=== PATIENT | male | born 1960 | race Caucasian/White ===

== ENCOUNTER 2020-04-12 15:04 | Emergency (ER) | payer OTHER, SELFPAY ==
[2020-04-12 15:11] VITALS: BP 136/93; PULSE 74; RESP 18; TEMP 37.1; O2SAT 99
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
[2020-04-12 15:54] LABS: Add Manual Diff / Slide Review NO; Basophils Absolute Auto 0 /uL (0-100); Basophils Percent Auto 0.7 % (0-2); Eosinophils Absolute Auto 0 /uL (0-450); Eosinophils Percent Auto 0.7 % (2-4); Hematocrit 40.9 % (41-53); Hemoglobin 13.7 g/dL (13.5-17.5); Lymphocytes Absolute Auto 1300 /uL (1100-4500); Lymphocytes Percent Auto 20.4 % (25-40); Mean Corpuscular HGB Conc 33.5 % (30-36); Mean Corpuscular Hemoglobin 28.8 PG (26-34); Mean Corpuscular Volume 86.1 fL (80-100); Monocytes Absolute Auto 300 /uL (0-900); Monocytes Percent Auto 4.6 % (3-14); Neutrophils Absolute Auto 4800 /uL (1500-7000); Neutrophils Percent Auto 73.6 % (50-75); Platelet Count 204 X10^3/uL (150-400); Red Blood Cell Count 4.75 X10^6/uL (4.5-5.9); Red Cell Distribution Width 13.2 % (11.6-14.8); White Blood Cell Count 6.5 X10^3/uL (4.5-11.0)
[2020-04-12 16:03] VITALS: PULSE 83; O2SAT 98
[2020-04-12 16:05] LABS: BUN Creatinine Ratio 23.5 (6-22); Blood Urea Nitrogen 16 mg/dL (9-20); Calcium 9.6 mg/dL (8.4-10.2); Carbon Dioxide 24 mmol/L (22-32); Chloride 98 mmol/L (98-107); Estimated Glomerular Filt Rate > 60.0 mL/min (>60); Potassium 4.3 mmol/L (3.4-5.1); Sodium 131 mmol/L (137-145)
[2020-04-12] MEDS: KETOROLAC 60 MG/2 ML VIAL 15 MG IV (16:05)
[2020-04-12] MEDS: SODIUM CHLORIDE 0.9% 1,000 ML 1000 ML IV (16:07)
[2020-04-12 16:18] LABS: HEMOLYSIS 27 (0-50)
[2020-04-12 16:21] LABS: Glucose 623 mg/dL (70-100)
[2020-04-12 16:30] VITALS: PULSE 85; O2SAT 99
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
[2020-04-12] MEDS: TET,DIPH,PERTUSS(ACELL),VAC/PF 0.5 ML SYRINGE IM (16:45)
[2020-04-12 17:00] VITALS: BP 126/65; PULSE 75; O2SAT 99
[2020-04-12] MEDS: BACITRACIN OINT 0.9 GM PCKT 1 APPLIC TOP (17:18)
== END 2020-04-12 17:27 | disposition home or self-care (01) ==
PROVIDERS: Emergency Provider Emergency Medicine
DX: M25.512 Pain in left shoulder (principal); E11.65 Type 2 diabetes mellitus with hyperglycemia; M25.571 Pain in right ankle and joints of right foot; V89.2XXA Person injured in unspecified motor-vehicle accident, traffic, initial encounter; Z23 Encounter for immunization
CPT/HCPCS: 70450; 71045; 72125; 73030; 73610; 80048; 82962; 85025; 90471; 96361; 96374; 99284; 90715; J1885

== ENCOUNTER → 2020-12-13 08:45 | Outpatient (CLI) | payer OTHER, SELFPAY ==
--- NOTE | 2020-12-13 | DI.MRI.S_ITS ---
PROCEDURE: MR CERVICAL SPINE WO CON INDICATIONS: Pain in unspecified shoulder TECHNIQUE: Noncontrast sagittal T1 spin echo and T2 fast spin echo, sagittal STIR, foraminal oblique sagittal T2 fast spin echo, and axial gradient echo or T2 fast spin echo through the cervical spine. COMPARISON: [facility], , C-SPINE WITHOUT CONTRAST, 07/19/2015, 9:51. FINDINGS: Image quality: Excellent. Alignment and Curvature: There is mild straightening of normal cervical curvature, unchanged. Bone Marrow: Marrow demonstrates normal overall signal. Minimal reactive endplate changes are present at C5-6, C6-7. Spinal Cord: Visualized spinal cord has normal size and signal. No cerebellar tonsillar herniation. Paraspinous Soft Tissues: No paravertebral masses. Prevertebral soft tissues are normal in thickness. Discs: Jqgn-tx-dsbevqpj desiccation is present throughout the cervical spine. C2-C3: No disc bulge, spinal stenosis or foraminal narrowing. No interval change. C3-C4: Mild disc bulge with minimal effacement of the spinal canal. Mild left and moderate right foraminal narrowing with uncovertebral hypertrophy. No interval progression. C4-C5: Mild motion is present at this level. There is mild disc bulge with mild spinal stenosis with effacement anterior thecal sac and minimal mass effect on the cord. Mild to moderate right and moderate to severe left foraminal narrowing, slightly progressive with facet and ligamentum flavum hypertrophy. C5-C6: Mild disc bulge with minimal canal narrowing. Qaro-dq-imqlqtau left and mild right foraminal narrowing with uncovertebral hypertrophy. No interval change. C6-C7: Mild asymmetric disc bulge with minimal canal narrowing. Mild right and mkzy-vc-qtnbnzrq left foraminal narrowing with uncovertebral hypertrophy. No interval change. C7-T1: No disc bulge, spinal stenosis or foraminal narrowing. IMPRESSION: 1. Multilevel degenerative changes with mild areas of interval progression as noted above. 2. Multilevel foraminal narrowing, overall szsd-gd-lgythjpr secondary to uncovertebral arthropathy. 3. Overall minimal to mild canal narrowing secondary to disc bulge. Dictated by: Juliette Smith M.D. on 12/13/2020 at 9:49 Approved by: Juliette Smith M.D. on 12/13/2020 at 10:06
== END ==
PROVIDERS: PCP Internal Medicine; Referring Provider Internal Medicine; Visit Provider Internal Medicine
DX: M25.519 Pain in unspecified shoulder (principal); M50.31 Other cervical disc degeneration, high cervical region; M47.812 Spondylosis without myelopathy or radiculopathy, cervical region; M50.21 Other cervical disc displacement, high cervical region
CPT/HCPCS: 72141

== ENCOUNTER → 2021-01-30 12:17 | Outpatient (CLI) | payer OTHER, SELFPAY ==
[2021-01-30] MEDS: COVID-19 VACC #1, MRNA(MOD) 100 MCG/0.5 ML VIAL IM (12:24)
== END ==
PROVIDERS: PCP Internal Medicine; Visit Provider Internal Medicine
DX: Z23 Encounter for immunization (principal)
CPT/HCPCS: 0011A; 91301

== ENCOUNTER → 2021-02-10 09:57 | Outpatient (CLI) | payer OTHER, SELFPAY ==
[2021-02-10 11:01] LABS: COVID19 -Nasal RAPID Negative (Negative)
== END ==
PROVIDERS: PCP Internal Medicine; Visit Provider Student in an Organized Health Care Education/Training Program
DX: Z01.812 Encounter for preprocedural laboratory examination (principal); Z20.822 Contact with and (suspected) exposure to COVID-19
CPT/HCPCS: 87635

== ENCOUNTER 2021-02-11 06:49 | Day surgery (SDC) | payer OTHER, SELFPAY ==
[2021-02-11 07:35] VITALS: BP 112/70; PULSE 70; RESP 16; TEMP 36.3; O2SAT 100; BMI 25.0
[2021-02-11] MEDS: PROPARACAINE 0.5% OPHTH SOL 2 DROPS EYE-OP (07:43)
[2021-02-11] MEDS: CATARACT EYE COMPOUND (10 DROPS/SYRINGE) 3 DROPS EYE-OP (07:43)
[2021-02-11] MEDS: INSULIN REGULAR 100 UNIT/ML 3 ML VIAL 10 UNIT SUBCUT (07:58)
--- NOTE | 2021-02-11 08:30 | PM.PREOP ---
Pre-operative Note Interval Note History & Physical reviewed/Exam performed by Physician: Yes Changes to H&P: No
--- NOTE | 2021-02-11 08:30 | P.OP_ITS ---
Operative Date/Time/Diagnoses Pre-op diagnosis: Nuclear Cataract Left eye Post-op diagnosis: same Procedure & Clinicians Same procedure as scheduled: Yes Surgeon: Bigg Gaines Anesthesia Type: MAC +/- and Sedation Operative Notes Procedure in detail: Patient brought to the operating suite. Tetracaine drops placed in the left eye. Marking instrument was used to maegan the vertica and horizontal meridians. Patient was prepped and draped in sterile manner. Wire lid speculum was placed in the eye. Marking instrument was used to maegan the 170 degree meridian. Betadine drops were placed on the eye. This was irrigated. Lidocaine jelly was placed on the eye. A paracentesis port was created with a side-port blade. 0.1 mL 1% preservative free lidocaine was injected into the anterior chamber. The anterior chamber was deepened with viscoelastic. 2.6 mm keratome was used to create a temporal clear corneal incision. Cystotome and Utrata forceps were used to create continuous tear capsulorrhexis. Balanced salt solution was used to hydro dissect the nucleus. The phacoemulsification handpiece was inserted and the nucleus was removed using the stop and chop tech nique. The irrigation aspiration handpiece was inserted and the remaining cortex was removed. Anterior chamber was deepened with viscoelastic. An Ponce [id number] intraocular lens with a power of 18.0 was injected into the capsular bag. Irrigation aspiration handpiece was inserted and the remaining viscoelastic was removed. The lens was rotated to the 170 degree meridian. Incision was hydrated with balanced salt solution and found to be leak free with pressure with Weck-Cheryl sponges. 0.1 mL Vigamox injected anterior chamber. 0.3 mL Kenalog 10 mg was injected subconjunctivally. Lid speculum was removed. The patient left the operating room in excellent condition. Complications: none Post-operative Condition: stable Disposition: same day surgery
--- NOTE | 2021-02-11 08:32 | SUR.PREOP ---
Repeat blood sugar after administration of insulin is 363. Notified Anesthesiology. Patient remains asymptomatic.
[2021-02-11] MEDS: LIDOCAINE 2% (GLYDO) 6 ML GEL TOP (08:48)
[2021-02-11] MEDS: MOXIFLOXACIN INJ 4 MG/0.8 ML VIAL 0.5 MG EYE-OP (08:48)
[2021-02-11] MEDS: CHONDROIDTIN/SOD HYALURONATE 1.05 ML SYRINGE INTRAOCULA (08:48)
[2021-02-11] MEDS: BALANCED SALT IRRIG SOLN NO.2 500 ML, EPINEPHrine 1 MG IRR (08:49)
[2021-02-11] MEDS: TETRACAINE 0.5% OPHTH DROPS 4 ML 2 DROPS EYE-OP (08:49)
[2021-02-11] MEDS: PHENYLEPHRINE/LIDOCAINE VIAL (OR) 0.2 ML EYE-OP (08:49)
[2021-02-11] MEDS: TRIAMCINOLONE 50 MG/5 ML VIAL INJ (08:49)
[2021-02-11 09:07] VITALS: BP 97/66; PULSE 72; RESP 14; TEMP 36.2; O2SAT 100
== END 2021-02-11 09:15 | disposition home or self-care (01) ==
PROVIDERS: PCP Internal Medicine; Referring Provider Ophthalmology; Visit Provider Ophthalmology
PROC: (CPT 66984; principal; 2021-02-11 08:45)
DX: H25.12 Age-related nuclear cataract, left eye (principal); E11.9 Type 2 diabetes mellitus without complications; Z79.4 Long term (current) use of insulin
CPT/HCPCS: 66984; 82962; J0171; J2250; J3301; V2787

== ENCOUNTER → 2021-03-03 11:09 | Outpatient (CLI) | payer OTHER, SELFPAY ==
[2021-03-03 15:39] LABS: COVID19 -Nasal RAPID Negative (Negative)
== END ==
PROVIDERS: PCP Internal Medicine; Visit Provider Physician Assistant
DX: Z01.812 Encounter for preprocedural laboratory examination (principal); Z20.822 Contact with and (suspected) exposure to COVID-19
CPT/HCPCS: 87635

== ENCOUNTER 2021-03-04 08:09 | Day surgery (SDC) | payer OTHER, SELFPAY ==
[2021-03-04 09:20] VITALS: BP 113/71; PULSE 70; RESP 13; TEMP 35.9; O2SAT 100; BMI 25.5
[2021-03-04] MEDS: PROPARACAINE 0.5% OPHTH SOL 2 DROPS EYE-OP (09:31)
[2021-03-04] MEDS: CATARACT EYE COMPOUND (10 DROPS/SYRINGE) 3 DROPS EYE-OP (09:31)
--- NOTE | 2021-03-04 10:07 | PM.PREOP ---
Pre-operative Note Interval Note History & Physical reviewed/Exam performed by Physician: Yes Changes to H&P: No
--- NOTE | 2021-03-04 10:08 | P.OP_ITS ---
Operative Date/Time/Diagnoses Pre-op diagnosis: Nuclear cataract right eye Procedure & Clinicians Procedure: Cataract Surgery Same procedure as scheduled: Yes Surgeon: Bigg Gaines Anesthesia Type: MAC +/- and Sedation Operative Notes Procedure in detail: Patient brought to the operating suite. Tetracaine drops placed in the right eye. Marking instrument was used to maegan vertical and horizontal meridians. Patient was prepped and draped in sterile manner. Wire lid speculum was placed in the eye. Marking instrument was used to maegan 5 degree meridian. Betadine drops were placed on the eye. This was irrigated. Lidocaine jelly was placed on the eye. A paracentesis port was created with a side-port blade. 0.1 mL 1% preservative free lidocaine was injected into the anterior chamber. The anterior chamber was deepened with viscoelastic. 2.6 mm keratome was used to create a temporal clear corneal incision. Cystotome and Utrata forceps were used to create continuous tear capsulorrhexis. Balanced salt solution was used to hydro dissect the nucleus. The phacoemulsification handpiece was inserted and the nucleus was removed using the stop and chop technique. The irrigation aspiration handpiece was inserted and the remaining cortex was removed. Anterior chamber was deepened with viscoelastic. An Ponce [id number] intraocular lens with a power of 17.5 was injected into the capsular bag. Irrigation aspiration handpiece was inserted and the remaining viscoelastic was removed. The lens was rotated to the 5 degree meridian. Incision was hydrated with balanced salt solution and found to be leak free with pressure with Weck- Cheryl sponges. 0.1 mL Vigamox injected anterior chamber. 0.3 mL Kenalog 10 mg was injected subconjunctivally. Lid speculum was removed. The patient left the operating room in excellent condition. Complications: none Post-operative Condition: stable Disposition: same day surgery
[2021-03-04] MEDS: CHONDROIDTIN/SOD HYALURONATE 1.05 ML SYRINGE INTRAOCULA (10:18)
[2021-03-04] MEDS: LIDOCAINE 2% (GLYDO) 6 ML GEL TOP (10:18)
[2021-03-04] MEDS: TETRACAINE 0.5% OPHTH DROPS 4 ML 2 DROPS EYE-OP (10:19)
[2021-03-04] MEDS: BALANCED SALT IRRIG SOLN NO.2 500 ML, EPINEPHrine 1 MG IRR (10:19)
[2021-03-04] MEDS: PHENYLEPHRINE/LIDOCAINE VIAL (OR) 0.2 ML EYE-OP (10:19)
[2021-03-04] MEDS: MOXIFLOXACIN INJ 4 MG/0.8 ML VIAL 0.5 MG EYE-OP (10:19)
[2021-03-04] MEDS: TRIAMCINOLONE 50 MG/5 ML VIAL INJ (10:20)
--- NOTE | 2021-03-04 10:22 | SUR.OPER ---
Supine on eye stretcher, head on extension cradle secured with tape. Arms tucked at sides with blanket. Pillow under knees.
[2021-03-04 10:46] VITALS: BP 99/67; PULSE 70; RESP 14; TEMP 36.5; O2SAT 100
== END 2021-03-04 11:00 | disposition home or self-care (01) ==
PROVIDERS: PCP Internal Medicine; Referring Provider Ophthalmology; Visit Provider Ophthalmology
PROC: (CPT 66984; principal; 2021-03-04 10:15)
DX: H25.11 Age-related nuclear cataract, right eye (principal); E11.9 Type 2 diabetes mellitus without complications; Z79.4 Long term (current) use of insulin
CPT/HCPCS: 66984; J0171; J2250; J3301; V2787

== ENCOUNTER → 2021-03-07 07:28 | Outpatient (CLI) | payer OTHER, SELFPAY ==
[2021-03-07] MEDS: COVID-19 VACC #2, MRNA(MOD) 100 MCG/0.5 ML VIAL IM (07:37)
== END ==
PROVIDERS: PCP Internal Medicine; Visit Provider Internal Medicine
DX: Z23 Encounter for immunization (principal)
CPT/HCPCS: 0012A; 91301

== ENCOUNTER 2021-07-05 15:29 | Emergency (ER) | payer OTHER, SELFPAY ==
[2021-07-05 15:40] VITALS: BP 119/72; PULSE 99; RESP 18; TEMP 37.1; O2SAT 98
--- NOTE | 2021-07-05 15:59 | ED.WOUNDLAC ---
HPI - Wound/Laceration <Jonnie Zheng PA-C - Last Filed: 07/05/21 17:23> General Chief Complaint: Wound/Laceration Stated Complaint: sliced top of left thumb Time Seen by Provider: 07/05/21 15:37 Source: patient Mode of arrival: Ambulatory Limitations: no limitations History of Present Illness HPI narrative: Joshua presents today with chief complaint of laceration to his left thumb that occurred just prior to arrival. He reports that he was working with a box knife and it slipped off of the object that he was cutting and went into the top of his thumb. He reports pain with range of motion and significant bleeding. He states that is really deep and he is concerned that he may have hit something inside. His tetanus is up-to-date. Related Data Home Medications Medication Instructions Recorded Confirmed aspirin 81 mg tablet,delayed 81 mg PO DAILY 02/11/21 03/04/21 release cyclobenzaprine 10 mg tablet 10 mg PO Q8HP PRN 02/11/21 03/04/21 diclofenac sodium 1 % topical gel 1 g TOPICAL PRN PRN 02/11/21 03/04/21 gabapentin 300 mg capsule 300 mg PO DAILY 02/11/21 03/04/21 hydrocodone 5 mg-acetaminophen 325 0 tab PO Q6HP PRN 02/11/21 03/04/21 mg tablet insulin glargine 100 unit/mL (3 20 unit SUBCUT BID 02/11/21 03/04/21 mL) subcutaneous pen (Lantus Solostar U-100 Insulin) metformin 1,000 mg tablet 1,000 mg PO BID 02/11/21 03/04/21 pioglitazone 15 mg tablet 15 mg PO DAILY 02/11/21 03/04/21 Allergies Allergy/AdvReac Type Severity Reaction Status Date / Time simvastatin [From ZOCOR] Allergy Unknown Joint Pain Verified 03/04/21 09:26 dulaglutide [From Trulicity] AdvReac Intermediate Vomiting Verified 03/04/21 09:26 Review of Systems <Jonnie Zheng PA-C - Last Filed: 07/05/21 17:23> Review of Systems Narrative: As per HPI Patient History <Jonnie Zheng PA-C - Last Filed: 07/05/21 17:23> Medical History (Updated 07/05/21 @ 16:41 by Jonnie Zheng PA-C) Diabetes Social History marital status: household members: spouse helmet use: Yes Smoking Status: Former smoker alcohol intake: never Smoking Status: Former smoker Substance Use Type: does not use Exam <Jonnie Zheng PA-C - Last Filed: 07/05/21 17:23> Narrative Exam Narrative: Exam Narrative: Const General: cooperative, healthy appearing, comfortable, no acute distress, well developed and well groomed Nutritional Appearance: average body habitus Orientation: alert and oriented x3 HENMT Head: normal to inspection and atraumatic Ears: hearing grossly normal bilaterally Nose: external nose normal and nares normal Face and sinus: normal facial exam Neck Neck: normal visual inspection and supple Resp Effort & Inspection: normal respiratory effort, able to speak in complete sentences, no audible wheezes, not labored, no nasal flaring and no respiratory distress Extremities Upper extremities exposed. 1.5 cm linear laceration to dorsal left thumb at interphalangeal joint. Small amount of bleeding. No underlying bony tenderness. Distal sensation is intact. Capillary refill is normal. Unable to extend thumb at interphalangeal joint. Flexion is intact. Extensor tendon is visualized and appears to be completely lacerated. Unable to visualize proximal end of tendon. Neuro General: alert, oriented x3, gait normal, tone normal and moves all extremities Cognition: normal cognition Speech: speech normal Gait: normal gait Psych Appearance: grossly normal and well kempt Mental Status: mental status grossly normal Speech and Movement: speech and movement normal Mood: congruent mood Affect: normal affect Initial Vital Signs Initial Vital Signs: Vital Signs Temperature 98.7 F 07/05/21 15:40 Pulse Rate 99 H 07/05/21 15:40 Respiratory Rate 18 07/05/21 15:40 Blood Pressure 119/72 07/05/21 15:40 Pulse Oximetry 98 07/05/21 15:40 <Amna Hill DO - Last Filed: 07/10/21 00:06> Initial Vital Signs Initial Vital Signs: Vital Signs Temperature 98.7 F 07/05/21 15:40 Pulse Rate 99 H 07/05/21 15:40 Respiratory Rate 18 07/05/21 15:40 Blood Pressure 119/72 07/05/21 15:40 Pulse Oximetry 98 07/05/21 15:40 Procedures <Jonnie Zheng PA-C - Last Filed: 07/05/21 17:23> Laceration Repair Laceration 1: Side (If applicable): left Size (cm): 1.5 Description: linear Depth: involves tendon Local Anesthetic: bupivacaine 0.5% Skin layer closed with: nylon (4.0) Size (cm): 4-0 Number of sutures: 1 Technique: simple, interrupted Course <Jonnie Zheng PA-C - Last Filed: 07/05/21 17:23> Course Course Narrative: I called and spoke with Dr. Elizondo with Orthopedics. I discussed this patient's extensor tendon laceration and his mechanism of injury. I am not able to reattached the tendons as I cannot visualize the proximal end. She recommended closure with splinting and clinic follow-up this next week. Orders Ordered: Discontinued Medications Bacitracin (Bacitracin Oint 0.9 Gm Pckt) 1 applic TOP NOW ONE Stop: 07/05/21 16:27 Last Admin: 07/05/21 16:34 Dose: 1 applic Documented by: RICKY Bupivacaine HCl (Bupivacaine 0.5% Mdv) 50 ml INJ INTRA-OP ONE Stop: 07/05/21 15:49 Last Admin: 07/05/21 16:32 Dose: 50 ml Documented by: RICKY Vital Signs Vital signs: Vital Signs - 8 hr 07/05/21 15:40 Temperature 98.7 F Pulse Rate 99 H Respiratory Rate 18 Blood Pressure 119/72 Pulse Oximetry 98 <Amna Hill DO - Last Filed: 07/10/21 00:06> Orders Ordered: Discontinued Medications Bacitracin (Bacitracin Oint 0.9 Gm Pckt) 1 applic TOP NOW ONE Stop: 07/05/21 16:27 Last Admin: 07/05/21 16:34 Dose: 1 applic Documented by: RICKY Bupivacaine HCl (Bupivacaine 0.5% Mdv) 50 ml INJ INTRA-OP ONE Stop: 07/05/21 15:49 Last Admin: 07/05/21 16:32 Dose: 50 ml Documented by: CHRISI Vital Signs Vital signs: Vital Signs - 8 hr 07/05/21 15:40 Temperature 98.7 F Pulse Rate 99 H Respiratory Rate 18 Blood Pressure 119/72 Pulse Oximetry 98 MDM - Wound/Laceration <Jonnie Zheng PA-C - Last Filed: 07/05/21 17:23> [facility] Narrative Medical decision making narrative: I considered retained foreign body, fracture but think that these are both not likely at this time. Laceration is linear. No underlying bony tenderness. I was unable to identify and find the proximal end of the lacerated tendon. Primary skin closure was done to decrease risk of infection with a single suture. Prophylactic antibiotics were prescribed and he was placed in a splint in an extended position. Signs of infection were discussed. ER return precautions were discussed. He will follow-up with orthopedics early next week in clinic. Patient verbalizes understanding and agrees to plan and has no further concerns at this time. Thank you A [id number] system was used with the dictation of this note. Please disregard any spelling or grammatical errors. Discharge Plan Departure Patient Disposition: Home Clinical Impression: Laceration of extensor muscle, fascia, and tendon of left thumb at wrist and hand level Laceration of thumb Qualifiers: Encounter type: initial encounter Damage to nail status: without damage Foreign body presence: without foreign body Laterality: left Qualified Code(s): S61.012A - Laceration without foreign body of left thumb without damage to nail, initial encounter Instructions: DI for Wound Infection Activity Restrictions/Additional Instructions: It was very nice to meet you this afternoon. It appears you lacerated the tendon in your thumb. Please keep your thumb in the splint and follow-up with the orthopedic clinic as discussed early next week. I would recommend calling them 1st thing Wednesday morning to set up an appointment. Dr. Elizondo with [facility] is who I spoke to today. I also recommend prophylactic antibiotics so please take them as discussed. If you experience increased pain, fever, spreading redness or any other acute concerns or complaints do not hesitate to return for re-evaluation. Thank you Jonnie Zheng PA-C Prescriptions: No Action cyclobenzaprine 10 MG tablet 10 mg PO Q8HP PRN (Reason: Muscle Spasm) RF: 0 hydrocodone-acetaminophen 5 MG/325 MG tablet 0 tab PO Q6HP PRN (Reason: Pain, Moderate) RF: 0 Lantus Solostar U-100 Insulin 100 unit/mL (3 mL) insulin pen 20 unit SUBCUT BID RF: 0 metformin 1,000 mg tablet 1,000 mg PO BID RF: 0 aspirin 81 mg tablet,delayed release (/EC) 81 mg PO DAILY RF: 0 gabapentin 300 mg capsule 300 mg PO DAILY RF: 0 pioglitazone 15 mg tablet 15 mg PO DAILY RF: 0 diclofenac sodium 1 % gel 1 g TOPICAL PRN PRN (Reason: Pain, Mild) RF: 0 Referrals: Kerrie Taylor MD [Primary Care Provider] - <Amna Hill DO - Last Filed: 07/10/21 00:06> Cosign ED Attending Cosignature Attestation: I was immediately available in the department for consultation. Documentation has been reviewed. Case was discussed. Patient appears to have injury to the tendon. Patient was splinted appropriately had laceration repair case was discussed with Orthopedic surgery who will probably follow-up with the patient for appropriate treatment and repair of tendon.
[2021-07-05] MEDS: BUPIVACAINE 0.5% MDV 50 ML INJ (16:32)
[2021-07-05] MEDS: BACITRACIN OINT 0.9 GM PCKT 1 APPLIC TOP (16:34)
== END 2021-07-05 16:49 | disposition home or self-care (01) ==
PROVIDERS: Emergency Provider Physician Assistant; PCP Internal Medicine
DX: S61.012A Laceration without foreign body of left thumb without damage to nail, initial encounter (principal); W26.0XXA Contact with knife, initial encounter
CPT/HCPCS: 12001; 99283

== ENCOUNTER 2021-12-12 12:15 | Emergency (ER) | payer OTHER, SELFPAY ==
[2021-12-12] VITALS (7 sets, daily range): BP systolic 120–145; BP diastolic 74–89; PULSE 78–104; RESP 18–20; TEMP 36.6; O2SAT 98–100; BMI 22.5
--- NOTE | 2021-12-12 12:42 | DI.RAD.S_ITS ---
PROCEDURE: XR ACUTE ABDOMEN SERIES INDICATIONS: severe abdominal pain TECHNIQUE: One view chest and two views of the abdomen were acquired. COMPARISON: [facility], CR, XR CHEST 1V, 04/12/2020, 15:05. FINDINGS: Surgical changes and devices: None. Chest: Lungs are clear. Heart size is normal. No pleural effusions. No pneumoperitoneum. Abdomen: Prominent stool in the colon. No suspicious calcifications. Visualized solid organ contours appear normal. Bones: No suspicious bony lesions. IMPRESSION: No acute cardiopulmonary abnormality. Prominent stool in the colon. Nonobstructive bowel gas pattern. Dictated by: Madan Dunn M.D. on 12/12/2021 at 13:19 Approved by: Madan Dunn M.D. on 12/12/2021 at 13:20
[2021-12-12 12:45] LABS: Add Manual Diff / Slide Review NO; Basophils Absolute Auto 100 /uL (0-100); Basophils Percent Auto 0.9 % (0-2); Eosinophils Absolute Auto 0 /uL (0-450); Eosinophils Percent Auto 0.5 % (2-4); Hematocrit 41.1 % (41-53); Hemoglobin 14.3 g/dL (13.5-17.5); Lymphocytes Absolute Auto 2300 /uL (1100-4500); Lymphocytes Percent Auto 31.3 % (25-40); Mean Corpuscular HGB Conc 34.8 % (30-36); Mean Corpuscular Hemoglobin 29.2 PG (26-34); Mean Corpuscular Volume 83.8 fL (80-100); Monocytes Absolute Auto 400 /uL (0-900); Monocytes Percent Auto 5.7 % (3-14); Neutrophils Absolute Auto 4600 /uL (1500-7000); Neutrophils Percent Auto 61.6 % (50-75); Platelet Count 293 X10^3/uL (150-400); Red Blood Cell Count 4.91 X10^6/uL (4.5-5.9); Red Cell Distribution Width 13.1 % (11.6-14.8); White Blood Cell Count 7.4 X10^3/uL (4.5-11.0)
[2021-12-12 13:00] LABS: Alanine Aminotransferase 16 IU/L (<50); Albumin 4.6 g/dL (3.5-5.0); Albumin Globulin Ratio 1.4 (1.0-2.8); Alkaline Phosphatase 88 U/L (38-126); Aspartate Aminotransferase 17 IU/L (17-59); BUN Creatinine Ratio 16.9 (6-22); Bilirubin Total 0.8 mg/dL (0.2-1.3); Blood Urea Nitrogen 11 mg/dL (9-20); Carbon Dioxide 23 mmol/L (22-32); Chloride 96 mmol/L (98-107); Estimated Glomerular Filt Rate > 60.0 mL/min (>60); Globulin 3.2 g/dL (1.7-4.1); HEMOLYSIS < 15 (0-50); Lipase 28 U/L (23-300); Potassium 4.1 mmol/L (3.4-5.1); Sodium 133 mmol/L (137-145); Total Protein 7.8 g/dL (6.3-8.2)
[2021-12-12 13:11] LABS: Glucose 514 mg/dL (70-100)
--- NOTE | 2021-12-12 15:06 | ED_ITS ---
HPI - Abdominal Pain General Chief Complaint: Abdominal Pain Stated Complaint: Stomach Cramps/Pain Under Rib Cage Time Seen by Provider: 12/12/21 12:42 Source: patient Mode of arrival: Ambulatory History of Present Illness HPI narrative: 60-year-old male former smoker with history of diabetes, prior stroke presents with a chief complaint of a least a few days of severe left upper quadrant pain it seems to be triggered after eating some stew a few days ago. His pain is significantly worse when he moves and improves with rest. He denies any fever chills. Denies any nausea, vomiting or diarrhea. He is still passing gas. He denies any history of the same. He denies any dietary change or new medications. Related Data Home Medications Medication Instructions Recorded Confirmed aspirin 81 mg tablet,delayed 81 mg PO DAILY 02/11/21 03/04/21 release cyclobenzaprine 10 mg tablet 10 mg PO Q8HP PRN 02/11/21 03/04/21 diclofenac sodium 1 % topical gel 1 g TOPICAL PRN PRN 02/11/21 03/04/21 gabapentin 300 mg capsule 300 mg PO DAILY 02/11/21 03/04/21 hydrocodone 5 mg-acetaminophen 325 0 tab PO Q6HP PRN 02/11/21 03/04/21 mg tablet insulin glargine 100 unit/mL (3 20 unit SUBCUT BID 02/11/21 03/04/21 mL) subcutaneous pen (Lantus Solostar U-100 Insulin) metformin 1,000 mg tablet 1,000 mg PO BID 02/11/21 03/04/21 pioglitazone 15 mg tablet 15 mg PO DAILY 02/11/21 03/04/21 Previous Rx's Medication Instructions Recorded pantoprazole 40 mg tablet,delayed 40 mg PO DAILY #30 tab 12/12/21 release (Protonix) Allergies Allergy/AdvReac Type Severity Reaction Status Date / Time simvastatin [From ZOCOR] Allergy Unknown Joint Pain Verified 03/04/21 09:26 dulaglutide [From Trulicity] AdvReac Intermediate Vomiting Verified 03/04/21 09:26 Review of Systems Review of Systems Narrative: GENERAL: Denies chills, fatigue, malaise, fever, sweats. HEENT: Denies sinus pain, ear pain, sore throat, difficulty swallowing, dizziness. RESPIRATORY: Denies dyspnea, cough, wheezing, hemoptysis, sputum. CARDIOVASCULAR: Denies chest pain, palpitations, orthopnea, edema, GASTROINTESTINAL: See HPI : Denies dysuria, frequency, incontinence, hematuria, urinary retention. MUSCULOSKELETAL: denies weakness, joint pain, or bony pain SKIN: Denies rash, skin lesions, or other NEUROLOGIC: Denies weakness, headache, numbness, change in speech, confusion, seizures, incoordination. PSYCHIATRIC: No concerning psychosocial issues. 12 point review of systems is negative except for those stated above Patient History Medical History (Updated 12/12/21 @ 16:40 by Ray Gutierrez DO) Diabetes Social History marital status: household members: spouse helmet use: Yes Smoking Status: Former smoker alcohol intake: never Smoking Status: Former smoker Substance Use Type: does not use Exam Narrative Exam Narrative: GENERAL: [60 year old patient appears stated age. Well-developed patient, in mild distress. HEAD: Atraumatic. Normocephalic. EYES: Pupils equal round and reactive. Extraocular motions intact. No scleral icterus. No injection or drainage. ENT: Nose without bleeding, purulent drainage. Throat without erythema, tonsillar hypertrophy or exudate. Airway patent. NECK: Trachea midline. Non tender CARDIOVASCULAR: Regular rate and rhythm without murmurs, gallops, or rubs. RESPIRATORY: Clear to auscultation. Breath sounds equal bilaterally. No wheezes, rales, or rhonchi. GASTROINTESTINAL: Abdomen soft, tender in the left upper quadrant, nondistended. Bowel sounds present EXTREMITIES: No edema or joint tenderness. BACK: Nontender without deformity or crepitance. No flank tenderness. NEURO: AOx3. SKIN: No rash or erythema of visible areas Initial Vital Signs Initial Vital Signs: Vital Signs Temperature 97.8 F 12/12/21 12:20 Pulse Rate 104 H 12/12/21 12:20 Respiratory Rate 18 12/12/21 12:20 Blood Pressure 120/74 12/12/21 12:20 Pulse Oximetry 99 12/12/21 12:20 Course Orders Ordered: ED Orders 12/12/21 12:20 EKG-12 Lead Stat 12/12/21 12:35 Complete Blood Count AUTO DIFF Stat Comprehensive Metabolic Panel Stat Lipase Stat 12/12/21 12:42 XR acute abdomen series Stat 12/12/21 15:34 CT abdomen pelvis w con Stat 12/12/21 15:41 VBG [Venous Blood Gas] Stat 12/12/21 15:50 Urine Culture Stat Urine Microscopic Stat Discontinued Medications Lactated Ringer's (Lactated Ringers) 1,000 mls @ 1,000 mls/hr IV BOLUS ONE Stop: 12/12/21 16:33 Last Admin: 12/12/21 15:40 Dose: 1,000 mls/hr Documented by: ISSAC Pantoprazole Sodium (Pantoprazole 40 Mg Vial) 40 mg IV NOW ONE Stop: 12/12/21 15:35 Last Admin: 12/12/21 15:40 Dose: 40 mg Documented by: ISSAC Vital Signs Vital signs: Vital Signs - 8 hr 12/12/21 12:20 12/12/21 14:57 12/12/21 14:58 Temperature 97.8 F Pulse Rate 104 H 104 H 98 H Respiratory Rate 18 18 Blood Pressure 120/74 145/89 H Pulse Oximetry 99 99 100 12/12/21 15:00 12/12/21 15:30 12/12/21 16:03 Temperature Pulse Rate 92 H 91 H 85 Respiratory Rate 18 18 18 Blood Pressure 138/83 121/80 121/80 Pulse Oximetry 99 99 98 12/12/21 16:30 Temperature Pulse Rate 78 Respiratory Rate 20 Blood Pressure 129/86 Pulse Oximetry 100 MDM - Abdominal Pain Lab Data Result diagrams: 12/12/21 12:35 12/12/21 12:35 Labs: Lab Results 12/12/21 12/12/21 12/12/21 Range/Units 12:35 12:35 15:41 WBC 7.4 (4.5-11.0) X10^3/uL RBC 4.91 (4.5-5.9) X10^6/uL Hgb 14.3 (13.5-17.5) g/dL Hct 41.1 (41-53) % MCV 83.8 (80-100) fL MCH 29.2 (26-34) PG MCHC 34.8 (30-36) % RDW 13.1 (11.6-14.8) % Plt Count 293 (150-400) X10^3/uL Neut % (Auto) 61.6 (50-75) % Lymph % (Auto) 31.3 (25-40) % [place] % (Auto) 5.7 (3-14) % Eos % (Auto) 0.5 L (2-4) % Baso % (Auto) 0.9 (0-2) % Neut # (Auto) 4600 (3517-8744) /uL Lymph # (Auto) 2300 (4709-8500) /uL [place] # (Auto) 400 (0-900) /uL Eos # (Auto) 0 (0-450) /uL Baso # (Auto) 100 (0-100) /uL VBG pH 7.37 (7.33-7.43) VBG pCO2 48.2 (45-50) mmHg VBG pO2 27 L (35-45) mmHg VBG HCO3 28 (23-28) mmol/L VBG Total CO2 29 (24-29) mmol/L VBG O2 Saturation 47 L (70-75) % VBG Base Excess 2.0 (0-4) mmol/L Sodium 133 L (137-145) mmol/L Potassium 4.1 (3.4-5.1) mmol/L Chloride 96 L (98-107) mmol/L Carbon Dioxide 23 (22-32) mmol/L BUN 11 (9-20) mg/dL Creatinine 0.65 L (0.66-1.25) mg/dL Estimated GFR > 60.0 (>60) mL/min BUN/Creatinine Ratio 16.9 (6-22) Glucose 514 H* (70-100) mg/dL Calcium 10.0 (8.4-10.2) mg/dL Total Bilirubin 0.8 (0.2-1.3) mg/dL AST 17 (17-59) IU/L ALT 16 (<50) IU/L Alkaline Phosphatase 88 (38-126) U/L Total Protein 7.8 (6.3-8.2) g/dL Albumin 4.6 (3.5-5.0) g/dL Globulin 3.2 (1.7-4.1) g/dL Albumin/Globulin Ratio 1.4 (1.0-2.8) Lipase 28 (23-300) U/L Point of care testing: Urine Dip Bedside Urine Glucose 1000 mg/dl Bedside Urine Bilirubin - Negative Bedside Urine Ketone ++ 40 Urine Specific [place] 1.015 Bedside Urine Occult Blood - Negative Bedside Urine pH 5.5 Bedside Urine Protein - Negative Bedside Urine Urobilinogen - Negative Bedside Urine Nitrite - Negative Bedside Urine Leukocytes - Negative Esterase Imaging Data CT scan - abdomen/pelvis: Radiologist's Impression: Launch?Image [address] [address] [address] Scan Report Signed Patient: Cassandra Rojas MR#: [id number] : 1960 Acct:[id number] Age/Sex: 60 / M Date of Service: 12/12/21 Loc: ED Accession Number: [id number] ?? Procedure: CT abdomen pelvis w con Ordering Provider: Ray Gutierrez D.O. PROCEDURE:? CT ABDOMEN PELVIS W CON ? INDICATIONS:? severe abdominal pain ? TECHNIQUE:? After the administration of oral and IV contrast, axial sections were acquired from the lung bases to the pubic symphysis.? Coronal and sagittal reformats were performed.? For radiation dose reduction, the following was used:? automated exposure control, adjustment of mA and/or kV according to patient size. ? COMPARISON:? [facility], CT, ABDOMEN/PELVIS WITH CONTRAST, 02/22/2009, 15 :56. ? FINDINGS:? Image quality:? Excellent.? ? Lung bases:? Unremarkable.? ? Heart:? No significant findings. ? ? ABDOMEN: Liver:? Liver is mildly enlarged measuring 16.7 cm with steatosis. Gallbladder:? Unremarkable.? ? Biliary ducts:? Unremarkable.? ? Pancreas:? Unremarkable.? ? Spleen:? Unremarkable.? ? Adrenal Glands:? Unremarkable.? ? Kidneys and Ureters:? Subcentimeter low-attenuation foci are present within the kidneys bilaterally.? Statistically they likely represent small cysts but are too small to definitively characterize.? There were not present in 2008. ? Stomach and Bowel:? Stomach, small bowel loops, and colon are unremarkable.? Significant colonic stool is present without obstruction.? Appendix is normal. Peritoneum:? No abnormal intraperitoneal fluid.? No free air.? ? Ventral Wall: ? No hernia.? Abdominal Nodes:? No retroperitoneal or mesenteric adenopathy by size criteria.? Vessels:? Aorta and inferior vena cava are normal in size.? ? PELVIS: Pelvic Organs:? Unremarkable.? ? Bladder:? Unremarkable.? ? Pelvic Nodes: No enlarged lymph nodes.? Miscellaneous: No inguinal hernias are seen. ? ? ? Bones:? Unremarkable.? IMPRESSION:? ? Significant colonic stool consistent with constipation.? No obstruction. ? ? Dictated by: Juliette Smith M.D. on 12/12/2021 at 16:21 ? ? Approved by: Juliette Smith M.D. on 12/12/2021 at 16:23 ? MDM Narrative Medical decision making narrative: Patient has reassuring history and physical exam. Tender to palpation in the left upper quadrant but pain well controlled. Patient is tolerating orals. Labs are reassuring and imaging shows no significant findings. There is a large stool burden and we discussed the use of [id number] laxatives. 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 Extensive return precautions discussed and questions answered to his apparent satisfaction Discharge Plan Departure Patient Disposition: Home Clinical Impression: Abdominal pain Instructions: DI for Abdominal Pain-Adult Activity Restrictions/Additional Instructions: *You have been diagnosed with [left upper quadrant pain. As we discussed your history and physical exam are very reassuring. Your labs demonstrate no significant findings and CT shows no obstruction, inflammation, signs of infecti on or other significant finding. There is a large amount of stool which would benefit from some stool softeners *What to do: *Prescription for Protonix sent to [facility] in [place] *Take over the counter medications as directed: 1. Metamucil - is a bulk forming laxative and adds fiber 2. Colace - softens your stool 3. Dulcolax suppository - stimulates your bowels *Follow up with your primary care provider in 2-3 days, call for appointmen t *Return to ER if you should have any new, worsening or concerning symptoms *Drink plenty of water and eat foods high in fiber *Stay as active as you can as this helps move your bowels as well Prescriptions: New pantoprazole [Protonix] 40 mg tablet,delayed release (DR/EC) 40 mg PO DAILY Qty: 30 0RF No Action cyclobenzaprine 10 MG tablet 10 mg PO Q8HP PRN (Reason: Muscle Spasm) 0RF hydrocodone-acetaminophen 5 MG/325 MG tablet 0 tab PO Q6HP PRN (Reason: Pain, Moderate) 0RF Lantus Solostar U-100 Insulin 100 unit/mL (3 mL) insulin pen 20 unit SUBCUT BID 0RF metformin 1,000 mg tablet 1,000 mg PO BID 0RF aspirin 81 mg tablet,delayed release (DR/EC) 81 mg PO DAILY 0RF gabapentin 300 mg capsule 300 mg PO DAILY 0RF pioglitazone 15 mg tablet 15 mg PO DAILY 0RF diclofenac sodium 1 % gel 1 g TOPICAL PRN PRN (Reason: Pain, Mild) 0RF Referrals: Kerrie Taylor MD [Primary Care Provider] -
--- NOTE | 2021-12-12 15:34 | DI.CT.S_ITS ---
PROCEDURE: CT ABDOMEN PELVIS W CON INDICATIONS: severe abdominal pain TECHNIQUE: After the administration of oral and IV contrast, axial sections were acquired from the lung bases to the pubic symphysis. Coronal and sagittal reformats were performed. For radiation dose reduction, the following was used: automated exposure control, adjustment of mA and/or kV according to patient size. COMPARISON: [facility], CT, ABDOMEN/PELVIS WITH CONTRAST, 02/22/2009, 15:56. FINDINGS: Image quality: Excellent. Lung bases: Unremarkable. Heart: No significant findings. ABDOMEN: Liver: Liver is mildly enlarged measuring 16.7 cm with steatosis. Gallbladder: Unremarkable. Biliary ducts: Unremarkable. Pancreas: Unremarkable. Spleen: Unremarkable. Adrenal Glands: Unremarkable. Kidneys and Ureters: Subcentimeter low-attenuation foci are present within the kidneys bilaterally. Statistically they likely represent small cysts but are too small to definitively characterize. There were not present in 2008. Stomach and Bowel: Stomach, small bowel loops, and colon are unremarkable. Significant colonic stool is present without obstruction. Appendix is normal. Peritoneum: No abnormal intraperitoneal fluid. No free air. Ventral Wall: No hernia. Abdominal Nodes: No retroperitoneal or mesenteric adenopathy by size criteria. Vessels: Aorta and inferior vena cava are normal in size. PELVIS: Pelvic Organs: Unremarkable. Bladder: Unremarkable. Pelvic Nodes: No enlarged lymph nodes. Miscellaneous: No inguinal hernias are seen. Bones: Unremarkable. IMPRESSION: Significant colonic stool consistent with constipation. No obstruction. Dictated by: Juliette Smith M.D. on 12/12/2021 at 16:21 Approved by: Juliette Smith M.D. on 12/12/2021 at 16:23
[2021-12-12] MEDS: LACTATED RINGERS 1,000 ML 1000 ML IV (15:40)
[2021-12-12] MEDS: PANTOPRAZOLE 40 MG VIAL IV (15:40)
[2021-12-12 16:00] LABS: HCO3 VBG 28 mmol/L (23-28); PCO2 VBG 48.2 mmHg (45-50); PO2 VBG 27 mmHg (35-45); Total CO2 VBG 29 mmol/L (24-29); pH VBG 7.37 (7.33-7.43)
[2021-12-12 16:01] LABS: Oxygen Saturation VBG 47 % (70-75)
[2021-12-12 16:55] LABS: Bacteria Urine None Seen; Culture Indicated Urine Cult Not Indicated; RBC Urine None Seen (0-5/HPF); Squamous Epithelial Cell Urine 0-1 /HPF (0-5/HPF); WBC Urine None Seen (0-5/HPF)
== END 2021-12-12 16:45 | disposition home or self-care (01) ==
PROVIDERS: Emergency Provider Emergency Medicine; PCP Internal Medicine
DX: R10.12 Left upper quadrant pain (principal); Z87.891 Personal history of nicotine dependence
CPT/HCPCS: 36415; 74022; 74177; 80053; 81003; 81015; 82805; 83690; 85025; 87086; 93005; 93010; 96361; 96374; 99284; C9113